=== PATIENT | female | born 1960 | race Caucasian/White ===

== ENCOUNTER 2023-08-31 10:16 | Emergency (ER) | payer OTHER ==
[~2023-08-31] VITALS: Ht 157.5 cm; Wt 58.5 kg
[2023-08-31 10:17] VITALS: BP 134/74; PULSE 87; RESP 16; TEMP 98.1; O2SAT 99
[2023-08-31 10:38] VITALS: O2SAT 99
[2023-08-31 11:01] VITALS: BP 128/72; PULSE 82; RESP 16; TEMP 98.1; O2SAT 99
[2023-08-31 11:07] LABS: BILIRUBIN,URINE NEGATIVE (NEGATIVE); BLOOD, URINE NEGATIVE (NEGATIVE); COLOR,URINE YELLOW (YELLOW); LEUKOCYTE ESTERASE ,URINE 1+ (NEGATIVE); NITRITE, URINE POSITIVE (NEGATIVE); PH,URINE 7.5 (5.0-9.0); PROTEIN,URINE 2+ (NEGATIVE); UGLUCOSE NEGATIVE (NEGATIVE)
[2023-08-31 11:10] LABS: APPEARANCE,URINE SLIGHTLY CLOUDY (CLEAR)
[2023-08-31 11:11] LABS: BACTERIA,URINE 2+ /HPF (None Seen); MUCUS,URINE None Seen /LPF (None Seen); RBC,URINE 0 /HPF (0-5); SQUAMOUS EPITHELIAL CELL,UR 4-10 (MOD) /LPF (0-3 (FEW))
[2023-08-31] MEDS ORDERED: CIPR500T4 PO (12:16)
[2023-08-31] MEDS ORDERED: MIRABULK PO (12:16)
== END 2023-08-31 12:30 | disposition home or self-care (01) ==
LOC: MED 10:16
DX: N39.0 Urinary tract infection, site not specified (principal); R53.1 Weakness; E11.9 Type 2 diabetes mellitus without complications; I10 Essential (primary) hypertension; Z98.890 Other specified postprocedural states
CPT/HCPCS: 81001; 82948; 87086; 99283

== ENCOUNTER 2024-02-25 16:27 | Emergency (ER) | payer OTHER ==
[~2024-02-25] VITALS: Ht 162.6 cm; Wt 59.0 kg
[~2024-02-25 16:27] MED LIST: CIPR500T4 PO; MIRABULK PO
[2024-02-25 16:39] VITALS: BP 137/65; PULSE 88; RESP 18; TEMP 97.9; O2SAT 98
[2024-02-25] MEDS: IBUPROFEN 600 MG TAB PO ONE (17:21)
[2024-02-25] MEDS ORDERED: CYCL-711 PO (18:19)
[2024-02-25] MEDS ORDERED: NAPR-337 PO (18:19)
[2024-02-25] MEDS ORDERED: LID5T TP (18:19)
== END 2024-02-25 18:44 | disposition home or self-care (01) ==
LOC: MED 16:27
DX: M25.512 Pain in left shoulder (principal); M54.6 Pain in thoracic spine; E11.9 Type 2 diabetes mellitus without complications; I10 Essential (primary) hypertension; Z79.899 Other long term (current) drug therapy
CPT/HCPCS: 73010; 73030; 82948; 99284